=== PATIENT | male | born 1995 | race Caucasian/White ===

== ENCOUNTER 2023-07-13 08:16 | Day surgery (SDC) | payer BC, SELFPAY ==
[2023-07-13] VITALS (12 sets, daily range): BP systolic 115–134; BP diastolic 67–79; PULSE 60–104; RESP 13–17; TEMP 36.2–36.9; O2SAT 98–100; BMI 29.7
[2023-07-13] MEDS: CEFAZOLIN 2 GM INJ IVP (08:30)
[2023-07-13] MEDS: LACTATED RINGERS 1000 ML 1,000 ML 100 ML IV (09:00)
[2023-07-13] MEDS: SODIUM CHLORIDE 0.9 % (FLUSH) 10 ML SYRINGE IVF (09:01)
--- NOTE | 2023-07-13 09:18 | W.PM.H&PU ---
History & Physical Update History & Physical Update H&P Reviewed and patient assessed: No changes noted
[2023-07-13] MEDS: BUPIVACAINE 0.25% 30 ML 20 ML INJECTION (10:15)
--- NOTE | 2023-07-13 10:21 | PM.GSPRC ---
Operative Note Pre-op diagnosis: 1. Recurrent pilonidal cyst. Post-op diagnosis: Same Type of Procedure: 1. Excision of pilonidal cyst. Indications: 28-year-old male was seen in clinic for evaluation of drainage from pilonidal cyst for the past several years. Patient described flares every 2 weeks when he experienced discomfort over the pilonidal cyst. He then would notice drainage within 1-2 days. The drainage was usually bloody and noted on his underwear. When the drainage stopped, his discomfort would improve. Patient also had a procedure done by Dermatology several years ago where the cyst was ?removed?. Procedure report was obtained and local excision with primary closure was noted in the operative report. On clinical exam at the superior aspect of the intergluteal cleft there was a single pit noted. Superior and to the left of it there was an area of hyperemic slightly raised erythematous skin suggestive of chronic inflammation. There was no purulence and no evidence of an abscess. Given patient's clinical history and his recurrent symptoms, excision of pilonidal cyst was recommended. The procedure was discussed in detail. The risks associated procedure including infection, bleeding, recurrence, seroma, incisional dehiscence, and possible need for healing by secondary intention were all discussed with the patient, and he agreed to proceed. Procedure Description: After discussing the risks and benefits of the procedure, the patient signed informed consent.? The operative site was marked and the patient was brought to the operating room. Patient was intubated by anesthesia and placed prone on the operating table with all pressure points padded. The operative site was then prepped and draped in the usual sterile fashion.? A time-out was then performed. The area of superior intergluteal cleft was carefully examined. The patient was noted to have a single pit at the superior aspect of the intergluteal cleft. Just superior and to the left of the spit approximately 1 cm lateral to it there was a vertically oriented slightly raise hyperemic skin from patient's chronic drainage. This was in the same location as his previous local excision. Surgical incision was marked with a marking pen. An S like curvilinear elliptical incision was marked to excise the chronic draining skin opening and a central single intergluteal pit. Surgical incision was then made with a scalpel. Dermis and subcutaneous fat were divided with cautery down to the fascia. Care was taken to limit resection to inflamed tissue only, thereby attempting to keep the wound as small as possible, while eradicating the involved tissue. Hemostasis was excellent with electrocautery. The resulting wound measured 10 cm x 4 cm. Subcutaneous flaps were developed with cautery on the right side to allow closure to be flat and off midline. Local anesthetic was injected in the surgical site. The incision was irrigated with diluted iodine and saline. A Kathi drain was placed into the incision superiorly exiting the skin through the right stab skin incision on the buttocks. The Kathi drain was sutured in place with Vicryl stitch. The incision was then closed in layers using interrupted vicryl sutures to re-approximate soft tissues. Skin was closed with with a running 4-0 Monocryl stitch. Steri-Strips and sterile pressure dressings were placed over the incision. The incision was then covered with tape. All counts were correct at the end of the case. Patient tolerated procedure well and was transferred to the PACU in stable condition. Anesthesia: GETA Surgeon: Estefanía Cook MD Estimated blood loss (mL): 5 Additional Specimen Information: 1. Pilonidal cyst excision. Condition: stable Disposition: PACU Date of procedure: 07/13/23
--- NOTE | 2023-07-13 10:46 | W.ANESCHARGE ---
Anesthesia Charges Start Date/Time Anesthesia Start Date: 07/13/23 Anesthesia Start Time: 09:14 Stop Date/Time Anesthesia Stop Date: 07/13/23 Anesthesia Stop Time: 10:43
--- NOTE | 2023-07-13 11:12 | SUR.PHASEI ---
was charted by jan reyna rn
--- NOTE | 2023-07-13 11:12 | SUR.PHASEI ---
patient met discharge criteria per anesthesia
== END 2023-07-13 12:20 | disposition home or self-care (01) ==
PROVIDERS: PCP Student in an Organized Health Care Education/Training Program; Visit Provider Surgery
PROC: (CPT 11771; principal; 2023-07-13 09:30)
DX: L05.91 Pilonidal cyst without abscess (principal)
CPT/HCPCS: 11771; 88304; 902; J0665; J0690; J1100; J1170; J1885; J2250; J2405; J2704; J3010; J7120